=== PATIENT | male | born 1970 | race Caucasian/White ===

== ENCOUNTER 2020-01-03 20:07 | Outpatient (REF) | payer BC, SELFPAY ==
[2020-01-03 19:20] LABS: Calculated LDL 81 mg/dL (<100); Cholesterol 139 mg/dL (<200); HDL Cholesterol 45 mg/dL (40-60); Triglyceride 65 mg/dL (<150)
[2020-01-07 11:26] LABS: PSA, Screening 0.3 ng/mL (0.0-2.5)
== END 2020-01-03 20:27 ==
LOC: NCHCN 20:07
PROVIDERS: Visit Provider Internal Medicine
DX: Z00.00 Encounter for general adult medical examination without abnormal findings (principal); Z13.220 Encounter for screening for lipoid disorders; Z12.5 Encounter for screening for malignant neoplasm of prostate; Z80.42 Family history of malignant neoplasm of prostate
CPT/HCPCS: 80061; 84153

== ENCOUNTER 2021-08-12 17:00 | Outpatient (REF) | payer OTHER, SELFPAY ==
[2021-08-13 17:41] LABS: PSA, Screening 0.4 ng/mL (0.0-2.5)
== END 2021-08-12 17:01 | disposition home or self-care (01) ==
LOC: NCHCN 17:00
PROVIDERS: Visit Provider Internal Medicine
DX: Z00.00 Encounter for general adult medical examination without abnormal findings (principal); Z12.5 Encounter for screening for malignant neoplasm of prostate
CPT/HCPCS: 84153

== ENCOUNTER 2024-05-09 15:27 | Outpatient (REF) | payer OTHER, SELFPAY ==
[2024-05-09 20:20] LABS: ALT 35 U/L (16-63); Calculated LDL 64 mg/dL (<100); Cholesterol 141 mg/dL (<200); Glucose 96 mg/dL (74-106); HDL Cholesterol 65 mg/dL (40-60); Triglyceride 62 mg/dL (<150)
[2024-05-09 20:32] LABS: Creatine Kinase 103 U/L (39-308)
[2024-05-10 23:14] LABS: PSA, Screening 1.8 ng/mL (<=3.5)
== END 2024-05-09 15:28 | disposition home or self-care (01) ==
LOC: NCHCN 15:27
PROVIDERS: Visit Provider Internal Medicine
DX: Z00.00 Encounter for general adult medical examination without abnormal findings (principal); Z13.220 Encounter for screening for lipoid disorders; Z13.1 Encounter for screening for diabetes mellitus; Z12.5 Encounter for screening for malignant neoplasm of prostate
CPT/HCPCS: 80061; 82550; 82947; 84153; 84460